=== PATIENT | female | born 1945 | race Two or more races ===

== ENCOUNTER 2019-03-16 06:19 | Day surgery (SDC) | payer OTHER ==
[~2019-03-16 06:19] MED LIST: PRAVASTATIN SOD10 MG
== END 2019-03-16 19:12 | disposition home or self-care (01) ==
LOC: CIR.AMB 06:19
DX: C50.412 Malignant neoplasm of upper-outer quadrant of left female breast (principal)

== ENCOUNTER 2019-05-12 14:57 | Emergency (ER) | payer OTHER ==
[~2019-05-12] VITALS: Ht 154.9 cm; Wt 50.8 kg
[2019-05-12] MEDS ORDERED: ANASTROZOLE1 MG (15:31)
[2019-05-12] MEDS ORDERED: SULFAMETHOXAZO1 EACH (15:32)
== END 2019-05-12 21:12 | disposition home or self-care (01) ==
LOC: ER 14:57
DX: L03.112 Cellulitis of left axilla (principal)

== ENCOUNTER 2019-05-18 09:24 | Outpatient (CLI) | payer OTHER ==
[~2019-05-18 09:24] MED LIST changes: +ANASTROZOLE1 MG; +SULFAMETHOXAZO1 EACH
== END 2019-05-18 09:30 | disposition home or self-care (01) ==
LOC: SONOGRAMA 09:24
DX: C50.412 Malignant neoplasm of upper-outer quadrant of left female breast (principal); N61.1 Abscess of the breast and nipple

== ENCOUNTER → 2019-05-18 11:17 | Outpatient (CLI) | payer OTHER | END | disposition home or self-care (01) | LOC: LAB 11:17 | DX: N61.1 Abscess of the breast and nipple (principal) ==

== ENCOUNTER 2019-05-28 08:04 | Outpatient (CLI) | payer OTHER | END 2019-05-28 13:30 | disposition home or self-care (01) | LOC: SONOGRAMA 08:04 | DX: C50.412 Malignant neoplasm of upper-outer quadrant of left female breast (principal) ==